=== PATIENT | male | born 1960 | race Caucasian/White ===

== ENCOUNTER → 2020-04-03 | Outpatient (CLI) | payer BC ==
[~2020-04-03] MED LIST: ADULT ASPIRIN R81 MG PO; AMOXICILLIN AND1 TA2 PO; FLONASE ALLERG9.9 ML NS; ZESTRIL10 M1 PO; ZOCOR20 M1 PO
[2020-04-03 14:18] LABS: HEMATOCRIT 47.4 % (42.0-52.0); HEMOGLOBIN 15.8 g/dL (13.5-18.0); MEAN PLATELET VOLUME 9.7 fl (7.4-10.4); RED BLOOD COUNT 4.92 M/mm3 (4.20-5.60); RED CELL DISTRIBUTION WIDTH 13.1 % (11.5-14.5); WHITE BLOOD COUNT 7.7 K/mm3 (4.8-10.8)
[2020-04-03 14:28] LABS: POTASSIUM 4.6 mmol/L (3.5-5.1)
[2020-04-03 14:30] LABS: CALCIUM 8.9 mg/dL (8.3-10.5)
[2020-04-03 14:33] LABS: TOTAL BILIRUBIN 0.5 mg/dL (0.2-1.2)
== END ==
LOC: LAB 14:09
PROVIDERS: Internal Medicine
DX: E78.00 Pure hypercholesterolemia, unspecified (principal); I10 Essential (primary) hypertension

== ENCOUNTER 2020-08-30 05:43 | Emergency (ER) | payer BC ==
[2020-08-30] MEDS ORDERED: ZESTRIL10 M1 PO (05:55)
[2020-08-30] MEDS ORDERED: ADULT ASPIRIN R81 MG PO (05:56)
[2020-08-30] MEDS ORDERED: ZOCOR20 M1 PO (05:56)
[2020-08-30 06:34] LABS: BASO # 0.07 (0.02-0.10); EOS # 0.22 (0.04-0.40); EOS % 2.6 % (0.0-4.0); HEMATOCRIT 43.4 % (42.0-52.0); HEMOGLOBIN 14.6 g/dL (13.5-18.0); MEAN CELL VOLUME 96 fl (78-100); MEAN CORPUSCULAR HEMOGLOBIN 32 pg (27-31); MEAN CORPUSCULAR HGB CONC 34 g/dL (33-37); MEAN PLATELET VOLUME 9.3 fl (7.4-10.4); MONO # 0.61 (0.20-0.80); NEU # 5.78 (1.40-6.50); PLATELET COUNT 206 K/mm3 (130-400); RED BLOOD COUNT 4.52 M/mm3 (4.20-5.60); RED CELL DISTRIBUTION WIDTH 12.5 % (11.5-14.5); WHITE BLOOD COUNT 8.6 K/mm3 (4.8-10.8)
[2020-08-30 06:42] LABS: ALBUMIN 3.6 g/dL (3.5-5.0)
[2020-08-30 06:43] LABS: POTASSIUM 3.5 mmol/L (3.5-5.1)
[2020-08-30 06:44] LABS: CALCIUM 8.5 mg/dL (8.3-10.5)
[2020-08-30 06:45] LABS: TOTAL PROTEIN 6.3 g/dL (6.4-8.3)
[2020-08-30 06:47] LABS: TOTAL BILIRUBIN 0.4 mg/dL (0.2-1.2)
[2020-08-30 07:39] LABS: ERYTHROCYTE SEDIMENTATION RATE 4 mm/hr (0-20)
[2020-08-30] MEDS ORDERED: AMOXICILLIN AND1 TA2 PO (08:32)
[2020-08-30] MEDS ORDERED: FLONASE ALLERG9.9 ML NS (08:33)
[2020-08-30 08:46] VITALS: BP 137/76
== END 2020-08-30 08:47 | disposition home or self-care (01) ==
LOC: ED 05:43
PROVIDERS: Family Medicine
DX: I10 Essential (primary) hypertension (principal); H49.02 Third [oculomotor] nerve palsy, left eye; J32.0 Chronic maxillary sinusitis; E78.5 Hyperlipidemia, unspecified; F17.210 Nicotine dependence, cigarettes, uncomplicated; Z79.899 Other long term (current) drug therapy